=== PATIENT | male | born 1985 | race Caucasian/White ===

== ENCOUNTER 2019-09-25 08:58 | Day surgery (SDC) | payer OTHER ==
[~2019-09-25] VITALS: Ht 180.3 cm; Wt 87.1 kg
[2019-09-25] MEDS ORDERED: ZYRTEC10 M3 PO (09:15)
[2019-09-25] MEDS ORDERED: IBUPROFEN600 MG PO (13:14)
[2019-09-25] MEDS ORDERED: OXYCODON-ACETA1 EAC2 PO (13:15)
[2019-09-25] MEDS ORDERED: TYLENOL EXTRA500 MG PO (13:15)
--- NOTE | 2019-09-25 13:37 | NUR ---
09/25/19 1337 Eva Polanco 1248 PT ARRIVED IN PACU AWAKE TALKING TO STAFF. NO C/O'S. TRANSPORT GUARDS AT BEDSIDE. 1300 DR AT BEDSIDE. ALL QUESTIONS ANSWERED. 1315 C/O R SIDE NECK PAIN 5/10. FENTANYL 50MCG GIVEN IVP. 1320 TAKING SIPS OF WATER. 1324 PAIN DOWN TO 3/10. FENTANYL 50MCG GIVEN IVP. 1330 PT SMILING AND TALKING WITH STAFF.
--- NOTE | 2019-09-26 15:16 | OR ---
[facility] [address], [place] [address] Signed DATE OF OPERATION: 09/25/2019 SURGEON: Piper Marcelino MD PREOPERATIVE DIAGNOSIS: Right supraclavicular lymphadenopathy. POSTOPERATIVE DIAGNOSIS: Right supraclavicular lymphadenopathy. PROCEDURE: Excision of deep cervical lymph node (2.5 cm) lateral to the internal jugular near scalene muscles. ANESTHESIA: General endotracheal, Ruben Quijano [employer]NA[employer], and local 5 mL of 0.25% Marcaine with epinephrine. INDICATIONS: This 34-year-old white man is a prisoner at [facility] and referred by Rudy Verde, nurse practitioner of [facility]. He has noticed supraclavicular adenopathy on the right side just above the clavicle, medially. He has no constitutional symptoms of night sweats, weight loss, or other signs of lymphoma, but did have symptoms beginning in August of 2018, one year ago with neck and shoulder swelling on the right side, this was a treated expectantly. He did have some associated dizziness and other symptoms which ultimately resolved. CT scans performed in 2019, both studies were negative for pathologic findings. Two weeks prior to my more recent evaluation, he had an ultrasound, which showed two lymph nodes, one of them nearly 3 cm in the right low neck and supraclavicular space. He has no night sweats, weight loss, and no family history of lymphoma. He is admitted to undergo excision of contact center representative lymph node. He understands the risks of bleeding, infection, nerve injury, and need for additional treatment should malignancy be found. FINDINGS: It is notable that the supraclavicular area on the right side behind the area of the sternocleidomastoid muscle did have palpable lymph nodes. The contact center representative lymph node was excised, which was about 2 cm in size. This was located well below the omohyoid and near the scalene muscles. A trans-sternocleidomastoid muscle approach was used with good result and with excellent hemostasis and control. He does have posteriorly along the border of the trapezius and more laterally a palpable mass, which I believed to be a Electronically Signed By: PIPER MARCELINO MD 09/26/19 1516 PATIENT NAME: RONNIE DE LEON OPERATIVE REPORT DATE OF : 83 REPORT #: [id number] PHYSICIAN: PIPER MARCELINO MD PCP: RUDY VERDE NP REPORT IS CONFIDENTIAL AND NOT TO BE RELEASED WITHOUT AUTHORIZATION [facility] [address], [place] [address] Signed bony prominence, where he had complaints of pain previously, this was not biopsied. The excised lymph node was firm and barrera and white and sent for permanent pathology. DESCRIPTION OF PROCEDURE: The patient was brought to the operating room, given a general LMA type anesthetic. Preoperative antibiotic Ancef was given. Sequential compression device and stockings were used. The head was turned somewhat to the left and the neck prepared with a chlorhexidine solution and draped sterilely. The palpable abnormality was basically below the sternocleidomastoid muscle. A small transverse incision was made directly over the palpable abnormality. Dissection was carried through the dermis sharply. Electrocautery was used for hemostasis. The platysma muscle was divided with electrocautery. Using blunt dissection, immediately noted were fibers of the sternocleidomastoid muscle. Careful positioning to identify the lymph node in question was undertaken and muscle fiber with hemostats with care. Vein retractors were used and ultimately passage through this to the area of the omohyoid was noted, this too was as the lymph node was deep to it. Meticulous care was taken, and at one point the internal jugular vein was identified medial to the area of dissection. This of course was avoided. Further dissection allowed for identification of a lymph node more fully. Using blunt dissection and gentle grasping of the lymph node, it was worked out of the area and in the depths one could see most likely what appeared to be the scalene muscles deep within the site. The lymph node was manipulated out of the wound and photographs were taken. Small clips were applied to the lymphatic channels, where small blood vessels associated with the lymph node. Complete excision was undertaken. Photograph was taken. The lymph node measured about 2 cm in size. Good hemostasis was noted. The sternocleidomastoid muscles were reapproximated with a few interrupted 2-0 Vicryl suture and platysmal layer similarly reapproximated. The skin was then closed with running subcuticular 3-0 Vicryl. Steri-Strips were applied as well as small OpSite dressing. The patient tolerated the procedure well. Blood loss wasessentially nil. He was ultimately extubated and taken to the recovery room in good condition and suffered no complications. MD KIRAN Acosta/AKSHAT /[id number] Electronically Signed By: PIPER MARCELINO MD 09/26/19 1516 PATIENT NAME: MOISESRONNIE OPERATIVE REPORT DATE OF : 83 REPORT #: [id number] PHYSICIAN: PIPER MARCELINO MD PCP: RUDY VERDE NP REPORT IS CONFIDENTIAL AND NOT TO BE RELEASED WITHOUT AUTHORIZATION [address] [address] Signed Copies: ~ Electronically Signed By: PIPER MARCELINO MD 09/26/19 1516 PATIENT NAME: RONNIE DE LEON SHARONDA OPERATIVE REPORT DATE OF : 83 REPORT #: [id number] PHYSICIAN: PIPER MARCELINO MD PCP: RUDY VERDE NP REPORT IS CONFIDENTIAL AND NOT TO BE RELEASED WITHOUT AUTHORIZATION
--- NOTE | 2019-10-01 16:06 | PATH ---
[facility] [address], [place] [address] Signed SPECIMEN(S): A RIGHT SUPRACLAVICULAR SPECIMEN SOURCE: A. RIGHT SUPRACLAVICULAR CLINICAL HISTORY: Supraclavicular lymphadenopathy. 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 COMMENT: Sections demonstrate and encapsulated lesion composed of bland spindled cells with wavy nuclei within a stroma of variable amounts of collagen. Immunohistochemical stains (with appropriately staining controls) demonstrate a mixture of both S100 and CD34 positive cells within the lesion. 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 As part of [facility] [employer], this case was reviewed by another member of our pathology staff. NAL:cml:C2NR MICROSCOPIC EXAMINATION: Histologic sections of all submitted blocks are examined by light microscopy. These findings, together with the gross examination, support the pathologic diagnosis. GROSS DESCRIPTION: The specimen, labeled "GEMA, A," and designated on the requisition "right supraclavicular lymph node," is received in formalin and consists of an unoriented smooth barrera nodular tissue fragment measuring 2.1 x 1.6 x 0.9 cm. The nodule is inked blue and serially sectioned revealing a glistening barrera surface. The specimen is serially sectioned and entirely submitted in cassettes A1-A2. AT (under the direct supervision of a pathologist) The Gross Description was prepared using a voice recognition system. The report was reviewed for accuracy; however, sound-alike word errors, addition and/or deletions may occur. If there is any PATIENT NAME: RONNIE DE LEON PATHOLOGY DATE OF : 83 REPORT #: [id number] PHYSICIAN: CALLI AVILA PCP: LARISSA VERDE NP REPORT IS CONFIDENTIAL AND NOT TO BE RELEASED WITHOUT AUTHORIZATION [facility] [address] [place] [address] Signed question about this report, please contact Client Services. PERFORMING LABORATORY: The technical component was performed by [facility] [address] ([employer] Manager: Marva Gaitan MD; CLIA# [id number]). [facility], [address] [place] [address] (CLIA# [id number]). Diagnostician: Tameka Mobley MD Pathologist Electronically Signed 10/01/2019 Copies: ~ PATIENT NAME: RONNIE DE LEON PATHOLOGY DATE OF : 83 REPORT #: [id number] PHYSICIAN: CALLI AVILA PCP: LARISSA VERDE NP REPORT IS CONFIDENTIAL AND NOT TO BE RELEASED WITHOUT AUTHORIZATION
== END 2019-09-25 14:35 | disposition home or self-care (01) ==
LOC: OPS 08:58 → DS 08:58 → OPS 10:15 → DS 12:00 → OPS 14:35
PROVIDERS: Surgery
PROC: 07B10ZX Excision of Right Neck Lymphatic, Open Approach, Diagnostic (ICD-10-PCS; principal; 2019-09-25 10:15)
DX: R59.0 Localized enlarged lymph nodes (principal); Z87.828 Personal history of other (healed) physical injury and trauma; Z87.891 Personal history of nicotine dependence
CPT/HCPCS: 00400; J0690; J1100; J1644; J1885; J2001; J2405; J2704; J3010; J7121